=== PATIENT | male | born 2000 | race Caucasian/White ===

== ENCOUNTER 2022-01-08 10:27 | Outpatient (REF) | payer BC, SELFPAY ==
--- NOTE | ~2022-01-08 | XR_ITS ---
EXAMINATION: RIGHT HAND SERIES CLINICAL INFORMATION: Hand pain. COMPARISON: None TECHNIQUE: 3 views of the right hand. FINDINGS: The bones joints and soft tissues are normal. XR/XR hand wrist RT IMPRESSION: Normal x-ray series of the right hand
== END 2022-01-08 10:28 | disposition home or self-care (01) ==
LOC: HO.HMGCX 10:27
PROVIDERS: Visit Provider Physician Assistant
DX: M79.641 Pain in right hand (principal)
CPT/HCPCS: 73110; 73130